=== PATIENT | male | born 1970 ===

== ENCOUNTER 2020-03-02 20:56 | Emergency (ER) | payer OTHER ==
[~2020-03-02] VITALS: Ht 172.7 cm; Wt 81.8 kg
[2020-03-02 20:59] VITALS: BP 159/93
[2020-03-02] MEDS ORDERED: CEPH500T PO (21:06)
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
[2020-03-02] MEDS ORDERED: TETANUS,DIPTH,PERTUSS P/F (BOOSTRIX) 0.5 ML VIAL IM ONE (21:15)
[2020-03-02] MEDS ORDERED: RX-HYDROCODONE/APAP 5/325 MG #4 TAB PK PO PRN (21:15)
[2020-03-02] MEDS ORDERED: CEPHALEXIN 250 MG (KEFLEX) CAP PO ONE (21:15)
--- NOTE | 2020-03-02 21:55 | Diagnostic Imaging Report ---
INDICATION: Nailbed injury COMPARISON: None. FINDINGS: 3 views of the left hand were obtained and show no fractures, dislocations, or other acute bony abnormalities. Joint spaces are well maintained throughout. The soft tissues appear unremarkable. No radiopaque foreign bodies are identified. IMPRESSION: Unremarkable radiographic exam of the left hand. Dictated by: Dictated on workstation # [id number]
--- OUTSIDE RECORDS SUMMARY | 2020-03-02 22:59 | XMS REPORT ---
Author Author [employer] [facility] [employer] Address [address] [address] Care Team Providers Care It Specialist Name Role Phone CELESTE SUÁREZ Unavailable LYNN ROLON DO Unavailable Unavailable MUSTAPHA REINA APRN Unavailable Unavailable MERY SANDERS MD Unavailable Unavailable NO, LOCAL PHYSICIAN PCP Unavailable Unavailable Unavailable Unavailable Unavailable Allergies The data below is from unstructured sources No Known AllergiesNo known allergies.No known allergies. Medications Medication Ingredient Drug Dose Dates Status Sig Sig Care Class(es) (Normalized) (Original) Provid er cephalexin Cephalexin Cephalospor 03-03-20 Active no Cephale irving no 500 mg oral in 20 information Active 500 name tablet (1 Antibacteri ORAL Three source.) al Times A Day March 02, 2020 9:06pm Problems Problem Normalized Date Last Normalized Normalized Provider Fa cility Classification Problem(s) Recorded Problem Problem Sta tus Duration Abdominal pain Abdominal 03-02-2020 - Episodic Active MERY FERNANDEZ PER , [facility] Via (3 sources.) [facility] ([id number]) Procedures Procedure Normalized Procedure Procedure Result Performer Facility Date 03-02-2020 Radiography of hand no information no name [facility] ([id number]) Immunizations Normalized Immunization Date Notes Care Provider Facili ty Immunization tetanus toxoid, 03-02-2020 - no information no name [facility] Vi a [facility] reduced diphtheria 03-02-2020 [facility] g toxoid, and ([id number]) acellular pertussis vaccine, adsorbed Results The data below is from unstructured sources No ResultsNo known relevant diagnostic tests and/or laboratory data.No known relevant diagnostic tests and/or laboratory data. Vital Signs The data below is from unstructured sources Vital Reading Result Col lection Date/Time Interventions No Information Plan of Treatment Normalized Care Care Detail Care Activity Date Care Provider F acility Activity Patient Education Wound Care (DC) no information LOCAL NO [facility] ([id number]) Patient referral no information no information LOCAL NO [facility] ([id number]) Goals Patient Goal Desired Goal no information no information Social History Normalized Code Original Code Date Value Tobacco smoking status Tobacco smoking status no information Never smoked tobacco NHIS NHIS (finding) no information no information 03-02-2020 Occasionally Us es no information no information 03-02-2020 No no information no information 03-02-2020 Denies no information no information 03-02-2020 Never a Smoker Sex Assigned At Sex Assigned At no information M lionel Functional Status The data below is from unstructured sourcesNo Functional Status information available Mental Status The data below is from unstructured sourcesNo Mental Status Information Available Encounters Encounter Normalized Encounter Encounter Diagnosis Care Provi hiram Organization Date Type 03-02-2020 Emergency department no information (no phone) [facility] (no phone) 03-03-2020 03-02-2020 Emergency department no information LYNN ROLON DO (no [facility] - patient visit phone) [facility] 03-02-2020 [facility] [employer] (no phone) (no phone) 10-21-2017 Patient encounter no information no name no or ganization name 12-19-2014 Patient encounter no information MERY SANDERS MD ( no [facility] procedure phone) [facility] g (no phone) Patient encounter no information (no phone) [facility] (no phone) Medical Equipment The data below is from unstructured sourcesNo Medical Equipment Information available Payers The data below is from unstructured sources Guarantor Lex Quintanilla Address [address] [address] Contact Info. Home Phone: Payer Policy Id Coverage Id Subscriber's Name Subscriber Id Effective Date Expiration Date [employer]IGP[employer] [id number] Lex Quintanilla [id number] Evaluation note Note Type Note Facility Evaluation No Assessments Information Available [facility] note [facility] ([id number]) Advance Directives Advance Directive Response Recorded Date/Time Advance Directives No Ju 2019 8:59pm Resuscitation Status Full Code March 02, 2020 8:59pm Chief Complaint and Reason for Visit Chief Complaint Laceration Reason for Visit [id number] Additional Source Comments This clinical document has been generated using [employer] software that has been certified by the Office of the National Coordinator for Health Information Technology (ONC 15.99.04.3023.Diam.[id number]) and the National Committee for Sales Mgr (NCQA, as an eMeasure certified technology). FOR RECORDS PERTAINING TO PATIENTS WHO ARE OR HAVE BEEN ENROLLED IN A CHEMICAL D EPENDENCY/SUBSTANCE ABUSE PROGRAM, SOME INFORMATION MAY BE OMITTED. This clinica l summary was aggregated from multiple sources. Caution should be exercised in using it in the provision of clinical care. This summary normalizes information from multiple sources, and as a consequence, information in this document may ma terially change the coding, format and clinical context of patient data. In joan tion, data may be omitted in some cases. CLINICAL DECISIONS SHOULD BE BASED ON T HE PRIMARY CLINICAL RECORDS. [employer] provides no warranty or guara ntee of the accuracy or completeness of information in this document.The followi ng information is based on time limited clinical information
--- OUTSIDE RECORDS SUMMARY | 2020-03-02 22:59 | XMS REPORT ---
Author Author Kurt SUÁREZ Organization [facility] Address [address] [place] [address] Care Team Providers Care Broom Machine Operator Name Role Phone CELESTE SUÁREZ Unavailable PROBLEMS Unknown Problems ALLERGIES No Known Allergies ENCOUNTERS Encounter Location Date Diagnosis [facility] [address] [id number] [place] [address] Sep, Influenza-like illness R69 IMMUNIZATIONS No Known Immunizations SOCIAL HISTORY Never Assessed REASON FOR VISIT fever, headache, body aches. [email or web address], has influenza PLAN OF CARE Activity Details Follow Up prn Reason: VITAL SIGNS Height 66 in 2017-10-21 Weight 172.4 lbs 2017-10-21 Temperature 98.3 degrees Fahrenheit 2017-10-21 Heart Rate 74 bpm 2017-10-21 Respiratory Rate 20 2017-10-21 BMI 27.82 kg/m2 2017-10-21 Blood pressure systolic 126 mmHg 2017-10-21 Blood pressure diastolic 70 mmHg 2017-10-21 MEDICATIONS No Known Medications RESULTS No Results PROCEDURES No Known procedures INSTRUCTIONS MEDICATIONS ADMINISTERED No Known Medications
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
== END 2020-03-02 21:30 | disposition home or self-care (01) ==
LOC: EDUNIT# 20:56 → ER 20:58
DX: S61.432A Puncture wound without foreign body of left hand, initial encounter (principal); Z23 Encounter for immunization; W29.4XXA Contact with nail gun, initial encounter
CPT/HCPCS: 73130; 90715